=== PATIENT | male | born 1940 | race Caucasian/White ===

== ENCOUNTER 2018-08-02 04:07 | Inpatient (IN) | payer MEDICARE ==
[~2018-08-02] VITALS: Ht 172.7 cm; Wt 70.3 kg
--- NOTE | 2018-08-02 05:19 | NUR ---
PT UNABLE TO PROVIDE URINE SAMPLE AT THIS TIME.
[2018-08-02 05:27] LABS: BASOPHILS 0.4 % (0-2); EOSINOPHILS 1.9 % (0-7); HEMATOCRIT 36.5 % (42.0-54.0); HEMOGLOBIN 12.8 g/dL (13.5-17.5); IMMATURE GRANULOCYTES 0.4 % (0-5); LYMPHOCYTES 35.7 % (15-50); MCH 30.8 pg (26.0-34.0); MCHC 35.1 g/dL (31.0-37.0); MEAN PLATELET VOLUME 8.2 fL (7.4-10.4); MONOCYTES 12.5 % (2-11); NEUTROPHILS 49.1 % (40-80); PLATELET COUNT 227 10x3/uL (130-400); RBC 4.15 10x6/uL (4.20-6.10); RDW 13.5 % (11.5-14.5); WBC 5.4 10x3/uL (4.8-10.8)
[2018-08-02 05:31] LABS: ALBUMIN 3.8 g/dL (3.4-5.0); ALKALINE PHOSPHATASE 62 U/L (46-116); ALT (SGPT) 19 U/L (10-68); BILIRUBIN - TOTAL 0.53 mg/dL (0.2-1.3); CALC OSMOLALITY 253 mosm/kg (275-300); CALCIUM 8.8 mg/dL (8.5-10.1); CARBON DIOXIDE 22.7 mmol/L (21.0-32.0); CHLORIDE - SERUM 94 mmol/L (98-107); CREATININE - SERUM 0.7 mg/dL (0.6-1.3); GLUCOSE 118 mg/dL (74-106); POTASSIUM - SERUM 3.9 mmol/L (3.5-5.1); SODIUM 126 mmol/L (136-145); UREA NITROGEN 12 mg/dL (7-18); eGFR NON AFRICAN AMERICAN > 90 mL/min (90-120)
[2018-08-02 05:42] LABS: CKMB 1.7 U/L (0.0-3.6); CREATINE KINASE 90 UL (21-232); MAGNESIUM - SERUM 1.6 mg/dL (1.8-2.4)
[2018-08-02 05:49] LABS: TROPONIN-I < 0.017 ng/mL (0.000-0.060)
--- NOTE | 2018-08-02 06:36 | NUR ---
IN AND OUT CATH USED TO COLLECT URINE PER EDP. PT HAD APPROX 800 ML OUTPUT WHEN COLLECTING URINE.
[2018-08-02 06:39] VITALS: BP 136/85
[2018-08-02 06:58] LABS: APPEARANCE CLEAR (CLEAR); BILIRUBIN NEGATIVE (NEGATIVE); COLOR YELLOW (YELLOW); GLUCOSE NEGATIVE (NEGATIVE); KETONE NEGATIVE (NEGATIVE); NITRITE NEGATIVE (NEGATIVE); PROTEIN NEGATIVE (NEGATIVE); UROBILINOGEN NORMAL (NORMAL)
[2018-08-02 07:19] LABS: CKMB 1.8 U/L (0.0-3.6); CREATINE KINASE 90 UL (21-232); TROPONIN-I < 0.017 ng/mL (0.000-0.060)
--- NOTE | 2018-08-02 10:55 | NUR ---
16 FR F/C PLACED PER STERILE TECHNIQUE PER MD ORDERS. 300ML YELLOW URINE RETURNED. PT JODI WELL
[2018-08-02 12:00] VITALS: BP 153/90
[2018-08-02 13:28] LABS: CKMB 1.3 U/L (0.0-3.6); CREATINE KINASE 94 UL (21-232)
[2018-08-02 13:30] LABS: TROPONIN-I < 0.017 ng/mL (0.000-0.060)
--- NOTE | 2018-08-02 14:52 | MORECARE ---
CASE MANAGEMENT DISCHARGE SUMMARY PATIENT: BISHNU NARANJO UNIT: [id number] ADM DATE: 08/02/18 AGE: 78 : 42 SEX: M ROOM/BED: D.2235 AUTHOR: DORIS,DOC PHYSICIAN: REFERRING PHYSICIAN: COLLINS LAKE MD DATE OF SERVICE: 08/02/18 Discharge Plan Patient Name: BISHNU NARANJO Facility: [facility]:[place] : 1940 Planned Disposition: Home Anticipated Discharge Date: Discharge Date: Expected LOS: Initial Reviewer: [email or web address] Initial Review Date: 08/02/2018 Generated: 08/02/18 3:51 pm Comments DCP- Discharge Planning Updated by [email or web address]: Nadeen Connelly on 08/02/18 1:[address] Patient Name: BISHNU NARANJO Admission Status: ER Accout number: [id number] Admission Date: 08-02-2018 : 1940 Admission Diagnosis: Attending: ZULEMA LAKE Current LOS: 1 Anticipated DC Date: Planned Disposition: Home Primary Insurance: [employer] CHOICE PPO MCR ADVANT Discharge Planning Comments: CM met with patient to complete initial dc planning assessment. CM educated patient on the CM role and verbal consent given by patient to complete assessment. Patient lives at home with his . At discharge patient plans to return and feels this is a safe discharge. CM discussed availability of home health, rehab services, and medical equipment. Patient denied known discharge needs at this time. I discussed the [facility], he does not wish to transfer to the [place], he states he has Humana and will use his [employer] benefits. CM will continue to follow and will assist as needed with dc plans/needs. Resistance Welder: Nadeen Connelly DCPIA - Discharge Planning Initial Assessment Updated by [email or web address]: Nadeen Connelly on 08/02/18 2:49 pm * Is the patient Alert and Oriented? Yes * PCP Jaqueline Ponce at [facility] or [facility] * [facility] for [facility]-term meds [facility] [address] for short term meds * Preadmission Environment Home with Family * ADLs Partial Dependent * Partial ADLs (Assistance needed) Ambulation * Equipment Cane Walker * List name and contact numbers for known caregivers / representatives who currently or will assist patient after discharge: Karely - [email or web address] - [phone] * Verbal permission to speak to the caregivers and representatives has been obtained from the patient. Yes * Community resources currently utilized [place] Services * Please name any agencies selected above. [place] clinic in [place] * Additional services required to return to the preadmission environment? No * Can the patient safely return to the preadmission environment? Yes * Has this patient been hospitalized within the prior 30 days at any hospital? No Coverage Notice Reviewer: [id number] Lew Connelly Notice Issued Date-Time: 08/02/2018 14:45 Notice Type: Medicare Outpatient Observation Notice Notice Delivered To: Patient Relationship to Patient: Self Disaster Recovery Consultant Name: Delivery Method: HAND - Hand Delivered Edita Days: Prior Verbal Notification: Recipient Understood Notice: Yes Recipient Signature: Yes Med Rec Note Co-signed by Attending: Coverage Notice Comment: GORDON explained, signed, given, copy placed in MR Patient Name: BISHNU NARANJO Page [phone] at 1452 All edits/amendments must be made on the electronic document DICTATION DATE: 08/02/18 1451 CARETAKER RESORT: WILMAR 08/02/18 1451 RPT#: [id number] DC DATE: STATUS: ADM IN [facility] [address] [place] [address] END OF REPORT
[2018-08-02 16:07] VITALS: BP 145/77; BMI 23.6
[2018-08-02 19:45] LABS: CKMB 1.3 U/L (0.0-3.6); CREATINE KINASE 77 UL (21-232); TROPONIN-I < 0.017 ng/mL (0.000-0.060)
[2018-08-02 21:14] VITALS: BP 157/79
--- NOTE | 2018-08-02 23:28 | NUR ---
REC'D. AT CHGE OF SHIFT.IN BED SUPINE POSITION. SLING INTACT LEFT ARM. FINGER AND NAIL BEDS PINK BLANCHES. WELL. WIGGLES WITHOUT DIFFICULTY.WILL CONTINUE TO MONITOR FOR ANY CHGES. NEUROVASCULAR STATUS AND FOLLOW CURRENT PLAN OF CARE.
[2018-08-03 01:40] VITALS: BP 138/90
[2018-08-03 05:02] VITALS: BP 164/80
[2018-08-03 06:28] LABS: BASOPHILS 0.1 % (0-2); EOSINOPHILS 0.6 % (0-7); HEMATOCRIT 34.9 % (42.0-54.0); HEMOGLOBIN 12.4 g/dL (13.5-17.5); IMMATURE GRANULOCYTES 0.1 % (0-5); LYMPHOCYTES 17.1 % (15-50); MCH 30.9 pg (26.0-34.0); MCHC 35.5 g/dL (31.0-37.0); MONOCYTES 13.6 % (2-11); NEUTROPHILS 68.5 % (40-80); PLATELET COUNT 226 10x3/uL (130-400); RBC 4.01 10x6/uL (4.20-6.10); RDW 13.4 % (11.5-14.5)
[2018-08-03 06:49] LABS: WBC 8.3 10x3/uL (4.8-10.8)
[2018-08-03 06:55] LABS: ALBUMIN 3.5 g/dL (3.4-5.0); ALKALINE PHOSPHATASE 55 U/L (46-116); ALT (SGPT) 27 U/L (10-68); BILIRUBIN - TOTAL 0.87 mg/dL (0.2-1.3); CALC OSMOLALITY 247 mosm/kg (275-300); CALCIUM 8.2 mg/dL (8.5-10.1); CARBON DIOXIDE 23.8 mmol/L (21.0-32.0); CHLORIDE - SERUM 93 mmol/L (98-107); CREATININE - SERUM 0.6 mg/dL (0.6-1.3); GLUCOSE 114 mg/dL (74-106); POTASSIUM - SERUM 3.7 mmol/L (3.5-5.1); PROTEIN - SERUM 6.6 g/dL (6.4-8.2); SODIUM 123 mmol/L (136-145); UREA NITROGEN 9 mg/dL (7-18); eGFR NON AFRICAN AMERICAN > 90 mL/min (90-120)
--- NOTE | 2018-08-03 07:53 | NUR ---
PT RESTING IN BED. SLING TO L ARM NOTED. ASSISTED PT UP AND TO THE SIDE OF THE BED. NO S/S OF ACUTE DISTRESS. CL IN PLACE.
[2018-08-03 08:53] VITALS: BP 155/81
[2018-08-03 12:00] VITALS: BP 136/77
[2018-08-03 13:34] VITALS: Ht 172.7 cm; Wt 70.3 kg
--- NOTE | 2018-08-03 15:13 | NUR ---
Rehab Prescreening Consult recieved and the chart has been reviewed. This patient is [employer] managed Medicare and will require a preauth. He does not have a qualifying rehab diagnosis at this time. Discussed with the CM Nadeen Connelly. Zara Rosa RN Clinical Liaison, Rehab
[2018-08-03] MEDS ORDERED: SPIRIVA18 MCG INH (16:32)
[2018-08-03] MEDS ORDERED: VOLTAREN75 MG PO (16:33)
[2018-08-03] MEDS ORDERED: GLUCOPHAGE500 MG PO (16:33)
[2018-08-03] MEDS ORDERED: FLOMAX0.4 MG PO (16:34)
[2018-08-03] MEDS ORDERED: PROTONIX40 MG PO (16:37)
[2018-08-03] MEDS ORDERED: MELATONIN5 MG PO (16:37)
[2018-08-03] MEDS ORDERED: ALBUTEROL SULF8.5 GM INH (16:41)
[2018-08-03] MEDS ORDERED: TRICOR145 MG PO (16:42)
[2018-08-03] MEDS ORDERED: LIPITOR10 MG PO (16:42)
[2018-08-03 17:09] VITALS: BP 136/70
--- NOTE | 2018-08-03 18:47 | NUR ---
PT RESTING IN THE BED. REPOSITIONED PT. NO S/S OF ACUTE DISTRESS. CL IN PLACE.
[2018-08-03 21:17] VITALS: BP 152/86
--- NOTE | 2018-08-03 23:35 | NUR ---
REC'D AT CHGE OF SHIFT REPOSITIONED PULLED UP IN BED.SLING LEFT ARM READJUSTED . FINGERS AND NAILBEDS PINK BLANCHES WELLWIGGLES FINGERS GOOD RADIAL PULSE. WILL CONTINUE TO MONITOR FOR ANY NEUROVASCULAR STATUS AND FOLLOW CURRENT PLAN OF CARE.
[2018-08-04 00:56] VITALS: BP 148/80
[2018-08-04 05:04] VITALS: BP 154/70
[2018-08-04 06:11] LABS: BASOPHILS 0.1 % (0-2); EOSINOPHILS 0.9 % (0-7); HEMATOCRIT 36.6 % (42.0-54.0); HEMOGLOBIN 13.1 g/dL (13.5-17.5); IMMATURE GRANULOCYTES 0.2 % (0-5); LYMPHOCYTES 19.4 % (15-50); MCH 31.3 pg (26.0-34.0); MCHC 35.8 g/dL (31.0-37.0); MCV 87.6 fL (80.0-100.0); MEAN PLATELET VOLUME 8.1 fL (7.4-10.4); MONOCYTES 14.4 % (2-11); PLATELET COUNT 222 10x3/uL (130-400); RBC 4.18 10x6/uL (4.20-6.10); RDW 13.6 % (11.5-14.5); WBC 9.6 10x3/uL (4.8-10.8)
[2018-08-04 06:36] LABS: ALBUMIN 3.6 g/dL (3.4-5.0); ALKALINE PHOSPHATASE 58 U/L (46-116); ALT (SGPT) 23 U/L (10-68); CALC OSMOLALITY 246 mosm/kg (275-300); CALCIUM 8.5 mg/dL (8.5-10.1); CARBON DIOXIDE 25.5 mmol/L (21.0-32.0); CHLORIDE - SERUM 91 mmol/L (98-107); CREATININE - SERUM 0.6 mg/dL (0.6-1.3); GLUCOSE 107 mg/dL (74-106); POTASSIUM - SERUM 3.6 mmol/L (3.5-5.1); PROTEIN - SERUM 6.9 g/dL (6.4-8.2); SODIUM 123 mmol/L (136-145); UREA NITROGEN 10 mg/dL (7-18); eGFR NON AFRICAN AMERICAN > 90 mL/min (90-120)
[2018-08-04 08:58] VITALS: BP 163/84
[2018-08-04] MEDS ORDERED: PROSCAR5 MG PO (11:21)
[2018-08-04] MEDS ORDERED: THERMOTABS 1 GM1 GM PO (12:10)
--- NOTE | 2018-08-04 12:33 | NUR ---
PT RESTING IN BED. NO SIGNS OF DISTRESS. IV TO LEFT AC PATENT NO REDNESS OR TENDERNESS. HAS CUETO NO KINKS. ON TELEMETRY 92 SR. DENIES ANY FUTHER NEED AT THIS TIME. CALL LIGHT IN REACH. BED LOW POSITION. FAMILY AT BEDSIDE.
--- NOTE | 2018-08-04 12:39 | MORECARE ---
CASE MANAGEMENT DISCHARGE SUMMARY PATIENT: BISHNU NARANJO UNIT: [id number] ADM DATE: 08/03/18 AGE: 78 : 42 SEX: M ROOM/BED: D.2235 AUTHOR: DORIS,DOC PHYSICIAN: REFERRING PHYSICIAN: COLLINS LAKE MD DATE OF SERVICE: 08/04/18 Discharge Plan Patient Name: BISHNU NARANJO Facility: [facility]:[place] : 1940 Planned Disposition: Home Anticipated Discharge Date: Discharge Date: Expected LOS: Initial Reviewer: [email or web address] Initial Review Date: 08/02/2018 Generated: 08/04/18 1:38 pm DCP- Discharge Planning Updated by [email or web address]: Nadeen Connelly on 08/02/18 1:[address] Patient Name: BISHNU NARANJO Admission Status: ER Accout number: [id number] Admission Date: 08-02-2018 : 1940 Admission Diagnosis: Attending: ZULEMA LAKE Current LOS: 1 Anticipated DC Date: Planned Disposition: Home Primary Insurance: [employer]NA CHOICE PPO MCR ADVANT Discharge Planning Comments: CM met with patient to complete initial dc planning assessment. CM educated patient on the CM role and verbal consent given by patient to complete assessment. Patient lives at home with his . At discharge patient plans to return and feels this is a safe discharge. CM discussed availability of home health, rehab services, and medical equipment. Patient denied known discharge needs at this time. I discussed the [place], he [place] not [place] to [place] to the [place], he states he has Humana and will use his Hum[employer] benefits. CM will continue to follow and will assist as needed with dc plans/needs. Guest Service Representative: Nadeen Connelly DCPIA - Discharge Planning Initial Assessment Updated by [email or web address]: Nadeen Connelly on 08/02/18 2:49 pm * Is the patient Alert and Oriented? Yes * PCP Jaqueline Ponce at [facility]] or [facility] * [facility] for custodial meds [facility] [address] for short term meds * Preadmission Environment Home with Family * ADLs Partial Dependent * Partial ADLs (Assistance needed) Ambulation * Equipment Cane Walker * List name and contact numbers for known caregivers / representatives who currently or will assist patient after discharge: Karely espinal - [phone] * Verbal permission to speak to the caregivers and representatives has been obtained from the patient. Yes * Community resources currently utilized [place] Services * Please name any agencies selected above. [place] clinic in [place] * Additional services required to return to the preadmission environment? No * Can the patient safely return to the preadmission environment? Yes * Has this patient been hospitalized within the prior 30 days at any hospital? No Coverage Notice Reviewer: [id number] Lew Connelly Notice Issued Date-Time: 08/02/2018 14:45 Notice Type: Medicare Outpatient Observation Notice Notice Delivered To: Patient Relationship to Patient: Self Computer Programming Manager Name: Delivery Method: HAND - Hand Delivered Edita Days: Prior Verbal Notification: Recipient Understood Notice: Yes Recipient Signature: Yes Med Rec Note Co-signed by Attending: Coverage Notice Comment: GORDON explained, signed, given, copy placed in MR Last DP export: 08/02/18 1:51 p Patient Name: BISHNU NARANJO Page [id number] at 1239 All edits/amendments must be made on the electronic document DICTATION DATE: 08/04/18 1238 SKEIN YARN DYER HELPER: WILMAR 08/04/18 1238 RPT#: [id number] DC DATE: STATUS: ADM IN [facility] [address] [place] [address] END OF REPORT
--- NOTE | 2018-08-04 12:55 | MORECARE ---
CASE MANAGEMENT DISCHARGE SUMMARY PATIENT: BISHNU NARANJO UNIT: [id number] ADM DATE: 08/03/18 AGE: 78 : 42 SEX: M ROOM/BED: D.2235 AUTHOR: DORIS,DOC PHYSICIAN: REFERRING PHYSICIAN: COLLINS LAKE MD DATE OF SERVICE: 08/04/18 Discharge Plan Patient Name: BISHNU NARANJO Facility: [facility]:[place] : 1940 Planned Disposition: Home Anticipated Discharge Date: Discharge Date: Expected LOS: Initial Reviewer: [email or web address] Initial Review Date: 08/02/2018 Generated: 08/04/18 1:55 pm DCP- Discharge Planning Updated by [email or web address]: Nadeen Connelly on 08/02/18 1:[address] Patient Name: BISHNU NARANJO Admission Status: ER Accout number: [id number] Admission Date: 08-02-2018 : 1940 Admission Diagnosis: Attending: ZULEMA LAKE Current LOS: 1 Anticipated DC Date: Planned Disposition: Home Primary Insurance: [employer]NA CHOICE PPO MCR ADVANT Discharge Planning Comments: CM met with patient to complete initial dc planning assessment. CM educated patient on the CM role and verbal consent given by patient to complete assessment. Patient lives at home with his . At discharge patient plans to return and feels this is a safe discharge. CM discussed availability of home health, rehab services, and medical equipment. Patient denied known discharge needs at this time. I discussed the [place], he [place] not [place] to [place] to the [place], he states he has Humana and will use his Hum[employer] benefits. CM will continue to follow and will assist as needed with dc plans/needs. Security Software Engineer: Nadeen Connelly DCPIA - Discharge Planning Initial Assessment Updated by [email or web address]: Nadeen Connelly on 08/02/18 2:49 pm * Is the patient Alert and Oriented? Yes * PCP Jaqueline Ponce at [facility] or [facility] * [facility] for longterm meds [facility] [address] for short term meds * Preadmission Environment Home with Family * ADLs Partial Dependent * Partial ADLs (Assistance needed) Ambulation * Equipment Cane Walker * List name and contact numbers for known caregivers / representatives who currently or will assist patient after discharge: Karely espinal - [phone] * Verbal permission to speak to the caregivers and representatives has been obtained from the patient. Yes * Community resources currently utilized [facility] Services * Please name any agencies selected above. [place] clinic in [place] * Additional services required to return to the preadmission environment? No * Can the patient safely return to the preadmission environment? Yes * Has this patient been hospitalized within the prior 30 days at any hospital? No External Providers External Provider: [facility] Next Contact Date: Service Request Date: Service Type: Resolution: Reviewer: Comments: Coverage Notice Reviewer: [id number] Lew Connelly Notice Issued Date-Time: 08/02/2018 14:45 Notice Type: Medicare Outpatient Observation Notice Notice Delivered To: Patient Relationship to Patient: Self Geological E Logger Name: Delivery Method: HAND - Hand Delivered Edita Days: Prior Verbal Notification: Recipient Understood Notice: Yes Recipient Signature: Yes Med Rec Note Co-signed by Attending: Coverage Notice Comment: LEYVA explained, signed, given, copy placed in MR Reviewer: [id number] Lew Connelly Notice Issued Date-Time: 08/04/2018 12:49 Notice Type: Patient Choice Letter Notice Delivered To: Family Member Relationship to Patient: Spouse Geological E Logger Name: Karely Delivery Method: HAND - Hand Delivered Edita Days: Prior Verbal Notification: Recipient Understood Notice: Yes Recipient Signature: Yes Med Rec Note Co-signed by Attending: Coverage Notice Comment: FANNIE for [facility] signed Last DP export: 08/04/18 11:38 a Patient Name: BISHNU NARANJO Page 48600 at 1255 All edits/amendments must be made on the electronic document DICTATION DATE: 08/04/18 1255 DIRECTOR PARK: WILMAR 08/04/18 1255 RPT#: [id number] DC DATE: STATUS: ADM IN [facility] [address] [place] [address] END OF REPORT
[2018-08-04 13:26] VITALS: BP 141/85
--- NOTE | 2018-08-04 13:43 | NUR ---
I have reviewed this patient and I concur with the Shift Assessment completed by the Licensed Practical Nurse today this shift.
--- NOTE | 2018-08-04 15:39 | NUR ---
DISCHARGE INSTRUCTIONS GIVEN. SEEMS TO UNDERSTAND INSTRUCTIONS. IV OUT TIP INTACT. MONITOR REMOVED. CATH LEFT IN PER DR REQUEST TAUGHT LEG BAG CARE AND HOW TO EMPTY TO PT AND . DENIES ANY NEED LEFT WITH HOSPITAL STAFF TO GO HOME IN PERSONAL RIDE.
--- NOTE | 2018-08-04 19:21 | NUR ---
OT NOTE: PT COMPLETED SIT TO STAND WITH MIN A. PT COMPLETED ADL MOB WITH CGA/MIN A. PT ADVISED TO KEEP SLING ON AFFECTED UE. PT COMPLETED HYGIENE TASK WITH MIN A. THANK YOU, BOLIVAR CHAMPAGNE
== END 2018-08-04 15:41 | disposition home health service (06) | DRG 312 ==
LOC: D.ER 04:07 → D.MS 07:35 → OBSVTIME 07:35 → D.MS 07:35
PROVIDERS: Family Medicine; ADMIT Emergency Medicine; ATTEND Emergency Medicine
DX: R55 Syncope and collapse (principal); E87.1 Hypo-osmolality and hyponatremia; G72.81 Critical illness myopathy; S42.031A Displaced fracture of lateral end of right clavicle, initial encounter for closed fracture; D64.9 Anemia, unspecified; J44.9 Chronic obstructive pulmonary disease, unspecified; R63.4 Abnormal weight loss; Z68.21 Body mass index [BMI] 21.0-21.9, adult

== ENCOUNTER 2018-08-19 02:50 | Inpatient (IN) | payer MEDICARE ==
[~2018-08-19] VITALS: Ht 172.7 cm; Wt 66.4 kg
[~2018-08-19 02:50] MED LIST: ALBUTEROL SULF8.5 GM INH; FLOMAX0.4 MG PO; GLUCOPHAGE500 MG PO; LIPITOR10 MG PO; MELATONIN5 MG PO; PROSCAR5 MG PO; PROTONIX40 MG PO; SPIRIVA18 MCG INH; THERMOTABS 1 GM1 GM PO; TRICOR145 MG PO; VOLTAREN75 MG PO
[2018-08-19 03:16] LABS: BASOPHILS 0.1 % (0-2); EOSINOPHILS 0.1 % (0-7); HEMATOCRIT 37.8 % (42.0-54.0); HEMOGLOBIN 13.2 g/dL (13.5-17.5); IMMATURE GRANULOCYTES 0.2 % (0-5); LYMPHOCYTES 8.4 % (15-50); MCHC 34.9 g/dL (31.0-37.0); MCV 88.7 fL (80.0-100.0); MEAN PLATELET VOLUME 7.8 fL (7.4-10.4); MONOCYTES 7.3 % (2-11); NEUTROPHILS 83.9 % (40-80); RBC 4.26 10x6/uL (4.20-6.10); RDW 13.8 % (11.5-14.5); WBC 16.5 10x3/uL (4.8-10.8)
[2018-08-19 03:18] LABS: PLATELET COUNT 280 10x3/uL (130-400)
[2018-08-19 03:19] LABS: APPEARANCE HAZY (CLEAR); BILIRUBIN NEGATIVE (NEGATIVE); COLOR YELLOW (YELLOW); GLUCOSE NEGATIVE (NEGATIVE); KETONE NEGATIVE (NEGATIVE); NITRITE NEGATIVE (NEGATIVE); PROTEIN TRACE mg/dL (NEGATIVE); UROBILINOGEN NORMAL (NORMAL)
[2018-08-19 03:20] LABS: BACTERIA FEW /hpf (NONE SEEN); EPITHELIAL CELLS NSEEN /hpf (0-5); RED CELLS - URINE 0-5 /hpf (0-5)
[2018-08-19 03:29] LABS: ALBUMIN 3.7 g/dL (3.4-5.0); ALKALINE PHOSPHATASE 86 U/L (46-116); ALT (SGPT) 17 U/L (10-68); BILIRUBIN - TOTAL 0.79 mg/dL (0.2-1.3); CALC OSMOLALITY 255 mosm/kg (275-300); CALCIUM 8.8 mg/dL (8.5-10.1); CARBON DIOXIDE 26.1 mmol/L (21.0-32.0); CHLORIDE - SERUM 93 mmol/L (98-107); CREATININE - SERUM 0.8 mg/dL (0.6-1.3); GLUCOSE 113 mg/dL (74-106); POTASSIUM - SERUM 3.8 mmol/L (3.5-5.1); PROTEIN - SERUM 7.7 g/dL (6.4-8.2); SODIUM 127 mmol/L (136-145); UREA NITROGEN 13 mg/dL (7-18); eGFR NON AFRICAN AMERICAN > 90 mL/min (90-120)
[2018-08-19 04:00] VITALS: BP 153/77
[2018-08-19] MEDS ORDERED: ULTRAM50 MG PO (04:44)
[2018-08-19] MEDS ORDERED: LISINOPRIL2.5 MG PO (04:45)
[2018-08-19] MEDS ORDERED: MOBIC7.5 MG PO (04:46)
[2018-08-19] MEDS ORDERED: ZOCOR80 MG PO (04:46)
[2018-08-19 04:48] VITALS: BP 153/77; Ht 172.7 cm; Wt 66.4 kg
[2018-08-19 08:41] VITALS: BP 153/85
--- NOTE | 2018-08-19 10:17 | NUR ---
ALERT AND ORIENTED WITH CUETO CATH PATENT WITH CLEAR SHAR URINE. SLING INTACT TO LUE WITH RADIAL PULSES NOTED W/O EDEMA. IVF INFUSING AT PRESCRIBED RATE. ENCOURAGED TO USE CALL LIGHT FOR ASSIST.
[2018-08-19] MEDS ORDERED: FLORAJEN3 CAPS460 MG PO (11:32)
[2018-08-19] MEDS ORDERED: LEVAQUIN750 MG PO (11:33)
[2018-08-19 13:24] VITALS: BP 150/64
== END 2018-08-19 13:45 | disposition home or self-care (01) | DRG 699 ==
LOC: D.ER 02:50 → D.MS 04:05
PROVIDERS: Emergency Medicine; ADMIT Family Medicine; ATTEND Family Medicine
DX: T83.511A Infection and inflammatory reaction due to indwelling urethral catheter, initial encounter (principal); E87.1 Hypo-osmolality and hyponatremia; E11.9 Type 2 diabetes mellitus without complications; J44.9 Chronic obstructive pulmonary disease, unspecified; N21.0 Calculus in bladder

== ENCOUNTER 2018-09-13 08:30 | Day surgery (SDC) | payer MEDICARE ==
[2018-09-12 10:44] LABS: HEMOGLOBIN 13.8 g/dL (13.5-17.5); MCH 30.8 pg (26.0-34.0); MCHC 35.4 g/dL (31.0-37.0); MCV 87.1 fL (80.0-100.0); MEAN PLATELET VOLUME 8.3 fL (7.4-10.4); RBC 4.48 10x6/uL (4.20-6.10); RDW 14.1 % (11.5-14.5); WBC 9.8 10x3/uL (4.8-10.8)
[2018-09-12 10:53] LABS: CALC OSMOLALITY 252 mosm/kg (275-300); CALCIUM 8.9 mg/dL (8.5-10.1); CARBON DIOXIDE 27.3 mmol/L (21.0-32.0); CHLORIDE - SERUM 92 mmol/L (98-107); CREATININE - SERUM 0.7 mg/dL (0.6-1.3); GLUCOSE 102 mg/dL (74-106); POTASSIUM - SERUM 4.5 mmol/L (3.5-5.1); SODIUM 127 mmol/L (136-145); UREA NITROGEN 8 mg/dL (7-18); eGFR NON AFRICAN AMERICAN > 90 mL/min (90-120)
[~2018-09-13] VITALS: Ht 172.7 cm; Wt 67.6 kg
[~2018-09-13 08:30] MED LIST changes: +FLORAJEN3 CAPS460 MG PO; +LEVAQUIN750 MG PO; +LISINOPRIL2.5 MG PO; +MOBIC7.5 MG PO; +ULTRAM50 MG PO; +ZOCOR80 MG PO
[2018-09-13 08:55] VITALS: BP 143/80; Ht 172.7 cm; Wt 67.6 kg
--- NOTE | 2018-09-13 14:13 | NUR ---
DC INSTRUCTIONS GIVEN TO PT/FAMILY. STATE UNDERSTANDING. DC'D IV CATH FULLY INTACT.
--- NOTE | 2018-09-13 14:14 | NUR ---
EMPTIED CUETO CATH BAG - 700 ML
--- NOTE | 2018-09-13 14:15 | NUR ---
PT LEFT UNIT VIA WC AT 1416
--- NOTE | 2018-09-14 08:37 | OP ---
PATIENT NAME: BISHNU NARANJO MEDICAL RECORD: [id number] :[birth year] LOCATION:D[facility] ADMISSION DATE: SURGEON: IRINA LEAVITT MD DATE OF OPERATION: 09/13/2018 SURGEON: Irina Leavitt MD. 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 PROCEDURES: 1. UroLift times 6 units attempted, 4 units held. 2. Bladder stone evacuation. FINDINGS: On cystoscopy, bilateral lateral lobe obstruction with a minimal median lobe. The bladder was heavily trabeculated with cellules and diverticula. There are myriad of tiny little bladder stones seen with no large single stone seen. No bladder tumors. He has single ureteral orifices bilaterally. ESTIMATED BLOOD LOSS: None. CLINICAL HISTORY: This is a 78-year-old male, who is in urinary retention. He has been on tamsulosin for BPH and he developed hypotension from the tamsulosin. He fell, fracturing his clavicle. He is also in chronic urinary retention. A CT scan shows large bladder stones up to 2 cm in size. He has ongoing UTIs and he has been on Levaquin for suppression. He has quite elevated voiding symptom scores. I put him on finasteride to try to shrink his prostate in the meantime and it has not helped him to void. He was scheduled for open bladder stone removal as well as UroLift implantation. HE IS ALLERGIC TO PSEUDOEPHEDRINE AND PANMIST. He was given Ancef x ray electronics wireman to the OR. DESCRIPTION OF PROCEDURE: The patient was given induction of general anesthesia in supine position. He was then placed into stirrups for the lithotomy position and prepped and draped. The UroLift scope was introduced. There were no urethral strictures in the penile urethra. The prostate shows lateral lobe obstruction. Going into the bladder, I was surprised to see that there are dozens of tiny little stones floating around in the bladder, but no obvious large stone. It was clear that what the CT scan interpreted it as a 2 cm stone was merely all these stones clustered together at that time. Using an Ellik evacuator, I managed to get most of the stones out, although they are still a few of them floating around inside. No bladder tumors were seen. I then proceeded with placement of the UroLift units. At the bladder neck level about 1.5 cm distal to the bladder neck, at the anterior lateral sulcus, I applied a unit on the right side with no issues. On the left side, I struck bone twice and both these units fail to fire properly afterwards. They had to be discarded. One final attempt worked successfully. We then placed 2 more units at the level of the verumontanum one on each side. An obturator was used and I could visualize a nice urethral channel through the whole anterior prostatic urethra. Because he was in urinary retention, I placed a 16-Swedish Segundo catheter back in to him. The balloon was inflated with 10 cc of sterile water. He will be going home with the catheter and I will see him in a few days' time to remove the catheter for a voiding trial. OPERATIVE REPORT [id number] JOSE ABISHNU MATHEW TRANSINT:[id number] Voice Confirmation ID: [id number] DOCUMENT ID: [id number] IRINA LEAVITT MD at 0837 CC: [id number] DICTATION DATE: 09/13/18 1206 POWER WHEELCHAIR MECHANIC: 09/13/18 1241 [facility] 09/13/18 [facility] [address] [place] [address]
== END 2018-09-13 14:16 | disposition home or self-care (01) ==
LOC: D.OPS 08:30 → D.PAN 10:40 → D.OPS 10:40
PROVIDERS: Anesthesiology; ATTEND Urology
DX: N40.1 Benign prostatic hyperplasia with lower urinary tract symptoms (principal); N13.8 Other obstructive and reflux uropathy; N21.0 Calculus in bladder; R33.8 Other retention of urine; N32.89 Other specified disorders of bladder; N32.3 Diverticulum of bladder; Z01.812 Encounter for preprocedural laboratory examination

== ENCOUNTER → 2020-08-29 10:15 | Outpatient (CLI) | payer MEDICARE ==
[2018-09-13 08:55] VITALS: BMI 22.7
== END | disposition home or self-care (01) ==
LOC: D.US 10:15
PROVIDERS: ATTEND Thoracic Surgery (Cardiothoracic Vascular Surgery)
DX: I70.202 Unspecified atherosclerosis of native arteries of extremities, left leg (principal); I70.291 Other atherosclerosis of native arteries of extremities, right leg